=== PATIENT | female | born 1980 | race Caucasian/White ===

== ENCOUNTER 2018-03-11 09:55 | Emergency (ER) | payer OTHER ==
[~2018-03-11] VITALS: Ht 157.5 cm; Wt 58.1 kg
[~2018-03-11 09:55] MED LIST: BACTRIM DS TAB1 EACH PO; DEPAKOTE PO; FIORICET 50-321 EACH PO; IRON; KEFLEX500 MG PO; VISTARIL PO; [UNRECOGNIZED DRUG - OTHER] PO
[2018-03-11] MEDS ORDERED: ANTIVERT25 MG PO (12:56)
[2018-03-11] MEDS ORDERED: ULTRAM 50MG TAB50 MG PO (12:56)
[2018-03-11] MEDS ORDERED: NORFLEX100 MG PO (12:56)
[2018-03-11 13:19] VITALS: BP 110/58
== END 2018-03-11 13:21 | disposition home or self-care (01) ==
LOC: ER 09:55
DX: S06.0X0A Concussion without loss of consciousness, initial encounter (principal); G43.909 Migraine, unspecified, not intractable, without status migrainosus; K74.60 Unspecified cirrhosis of liver; F17.210 Nicotine dependence, cigarettes, uncomplicated; Z88.5 Allergy status to narcotic agent; Z88.8 Allergy status to other drugs, medicaments and biological substances; W22.8XXA Striking against or struck by other objects, initial encounter; Y93.89 Activity, other specified; Y92.34 Swimming pool (public) as the place of occurrence of the external cause; Y99.8 Other external cause status